=== PATIENT | male | born 2000 | race Caucasian/White ===

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

== ENCOUNTER 2022-03-14 09:06 | Emergency (ER) | payer OTHER ==
[~2022-03-14 09:06] MED LIST: FLEXERIL5 MG PO
[2022-03-14] MEDS ORDERED: NAPROXEN500 MG PO (10:51)
== END 2022-03-14 11:22 | disposition home or self-care (01) ==
LOC: FER 09:06
DX: S46.912A Strain of unspecified muscle, fascia and tendon at shoulder and upper arm level, left arm, initial encounter (principal); Z28.310 Unvaccinated for COVID-19; Z88.0 Allergy status to penicillin; V49.9XXA Car occupant (driver) (passenger) injured in unspecified traffic accident, initial encounter
CPT/HCPCS: 73030